=== PATIENT | male | born 1935 | race Caucasian/White ===

== ENCOUNTER 2016-11-24 14:45 | Emergency (ER) | payer MEDICARE ==
[~2016-11-24] VITALS: Ht 180.3 cm; Wt 79.0 kg
[~2016-11-24 14:45] MED LIST: ASPI81 PO; CLOP75 PO; ISOS60 PO; LISI-363 PO; METO25 PO; ZOCO40TA PO
[2016-11-24 14:53] VITALS: BP 176/87; PULSE 78; RESP 18; TEMP 98.3; O2SAT 98
--- NOTE | 2016-11-24 14:59 | PD ---
HPI Chief Complaint: Chest Pain Time Seen by Provider: 14:51 Travel History International Travel<30 days: No Contact w/Intl Traveler<30days: No Traveled to known affect area: No History of Present Illness HPI 81-year-old male with history of p HTN, HLD, aroxysmal atrial flutter, CAD with PCI 4, RCA 2 and mid LAD 2, approximately one year ago here with complaint of chest pain and lightheadedness. Patient states he went to synagogue this morning and felt in his usual health. Once he arrived home he had approximately 30 minutes bowel of substernal chest pressure, slightly burning in sensation with associated lightheadedness, dizziness and presyncope. Symptoms resolved spontaneously after nitroglycerin 1. Patient is symptom- free at this time. He sees Dr. amato for cardiology, he is due to see him in approximately 2 weeks. He has not had any provocative testing since his cardiac one year ago. Patient states he's been compliant with his Plavix. PFSH Past Medical History Hx Anticoagulant Therapy: Yes (PLAVIX) Anxiety: Yes Depression: No Heart Rhythm Problems: No Cancer: No Cardiovascular Problems: Yes High Cholesterol: Yes Chest Pain: Yes Congestive Heart Failure: No Diminished Hearing: Yes Endocrine: No Genitourinary: No Hypertension: Yes Immune Disorder: No Inguinal Hernia: Yes Musculoskeletal: No Neurologic: No Psychiatric: No Reproductive: No Respiratory: No ?: Not Past Surgical History AICD: No Arteriovenous Shunt: No Coronary Stent: Yes (X4) Insulin Pump: No Joint Replacement: No Pacemaker: No Other Surgery: Yes (HERNIA REPAIR X 2) Social History Alcohol Use: No Tobacco Use: No Substance Use: No Allergies-Medications (Allergen,Severity, Reaction): Coded Allergies: Penicillin (Verified Allergy, Unknown, 11/24/16) Reported Meds & Prescriptions Reported Meds & Active Scripts Active Reported Simvastatin 20 Mg Tab 20 Mg PO HS Metoprolol Tartrate 25 Mg Tab 12.5 Mg PO BID Aspirin 325 Mg Tab 325 Mg PO DAILY Plavix (Clopidogrel Bisulfate) 75 Mg Tab 75 Mg PO DAILY Lisinopril 2.5 Mg Tab 2.5 Mg PO BID Isosorbide Mononitrate ER (Isosorbide Mononitrate) 60 Mg Tab 60 Mg PO DAILY Review of Systems Except as stated in HPI: all other systems reviewed are Neg Physical Exam Narrative GENERAL: Well-appearing male in no acute distress SKIN: Focused skin assessment warm/dry. HEAD: Normocephalic. EYES: No scleral icterus. No injection or drainage. ENT: Mucous membranes pink and moist. TMs clear bilaterally. NECK: Supple CARDIOVASCULAR: Regular rate and rhythm. No murmur appreciated. RESPIRATORY: No accessory muscle use. Clear to auscultation. Breath sounds equal bilaterally. GASTROINTESTINAL: Abdomen soft, non-tender, nondistended. MUSCULOSKELETAL: No obvious deformities. Trace BLE edema NEUROLOGICAL: Awake and alert. Motor grossly within normal limits. Normal speech. PSYCHIATRIC: Appropriate mood and affect; insight and judgment normal. Data Data Last Documented VS Vital Signs Date Time Temp Pulse Resp B/P Pulse Ox O2 Delivery O2 Flow Rate FiO2 11/24/16 15:03 70 18 136/75 97 Room Air 11/24/16 14:53 98.3 Orders Electrocardiogram (11/24/16 14:51) Basic Metabolic Panel (Bmp) (11/24/16 14:51) Ckmb (Isoenzyme) Profile (11/24/16 14:51) Complete Blood Count With Diff (11/24/16 14:51) Magnesium (Mg) (11/24/16 14:51) Prothrombin Time / Inr (Pt) (11/24/16 14:51) Act Partial Throm Time (Ptt) (11/24/16 14:51) Troponin I (11/24/16 14:51) Chest, Single Ap (11/24/16 14:51) Ecg Monitoring (11/24/16 14:51) Iv Access Insert/Monitor (11/24/16 14:51) Oximetry (11/24/16 14:51) Oxygen Administration (11/24/16 14:51) Sodium Chloride 0.9% Flush (Ns Flush) (11/24/16 15:00) Labs Laboratory Tests Test 11/24/16 15:00 White Blood Count 5.9 TH/MM3 Red Blood Count 4.37 MIL/MM3 Hemoglobin 13.9 GM/DL Hematocrit 39.9 % Mean Corpuscular Volume 91.4 FL Mean Corpuscular Hemoglobin 31.9 PG Mean Corpuscular Hemoglobin 34.8 % Concent Red Cell Distribution Width 12.7 % Platelet Count 237 TH/MM3 Mean Platelet Volume 7.1 FL Neutrophils (%) (Auto) 61.8 % Lymphocytes (%) (Auto) 23.6 % Monocytes (%) (Auto) 12.1 % Eosinophils (%) (Auto) 1.6 % Basophils (%) (Auto) 0.9 % Neutrophils # (Auto) 3.6 TH/MM3 Lymphocytes # (Auto) 1.4 TH/MM3 Monocytes # (Auto) 0.7 TH/MM3 Eosinophils # (Auto) 0.1 TH/MM3 Basophils # (Auto) 0.1 TH/MM3 CBC Comment DIFF FINAL Differential Comment Prothrombin Time 11.3 SEC Prothromb Time International 1.0 RATIO Ratio Activated Partial 28.6 SEC Thromboplast Time Sodium Level 136 MEQ/L Potassium Level 4.0 MEQ/L Chloride Level 102 MEQ/L Carbon Dioxide Level 27.4 MEQ/L Anion Gap 7 MEQ/L Blood Urea Nitrogen 13 MG/DL Creatinine 0.94 MG/DL Estimat Glomerular Filtration 77 ML/MIN Rate Random Glucose 132 MG/DL Calcium Level 8.5 MG/DL Magnesium Level 2.2 MG/DL Total Creatine Kinase 31 U/L Troponin I LESS THAN 0.02 NG/ML MDM Medical Decision Making Medical Screen Exam Complete: Yes Emergency Medical Condition: Yes Medical Record Reviewed: Yes Differential Diagnosis 81-year-old male with history of CAD with previous PCI 4, HTN, HLD, paroxysmal atrial flutter here with complaint of 30 minutes of substernal chest pain with lightheadedness and presyncope. Differential includes ACS, atypical chest pain , GERD, musculoskeletal, arrhythmia, symptomatic anemia, and less likely PE or dissection. Narrative Course Patient placed on monitor, IV established and blood obtained. A twelve-lead EKG shows sinus rhythm without notable ST or T-wave abnormalities and normal intervals. Patient took his aspirin this morning along with nitroglycerin and is symptom-free at this time. Portable chest x-ray obtained that by my read shows no acute abnormalities. CBC, BMP, magnesium, CK-MB, troponin, coags unremarkable. Patient has remained symptom free throughout his ED stay. Given his lack of provocative testing for the last year since he had cardiac stents placed highly recommended staying for serial cardiac enzymes, EKG, telemetry and provocative testing to patient and his . Patient is fairly insistent about going home stating "Dr. amato is good and will get me in tomorrow". Discussed risks and benefits of going home with patient and his , and patient would like to go home at this time. Diagnosis Primary Impression: Precordial chest pain Additional Impression: Lightheadedness Referrals: Yonny Amato MD 1 day Call tomorrow for follow-up appointment Additional Instructions: Follow-up with Dr. amato tomorrow. Return to the emergency department for the warning signs discussed. Med/Other Pt SpecificInfo: No Change to Meds Disposition: 01 DISCHARGE HOME Condition: Stable Marisa Aguilera MD November 24, 2016 14:59
[2016-11-24] MEDS ORDERED: SODIUM CHLORIDE 0.9% FLUSH 10 ML FLUSH IVF PRN (15:00)
[2016-11-24 15:03] VITALS: BP 136/75; PULSE 70; RESP 18; O2SAT 97
[2016-11-24] MEDS ORDERED: ISOS20TA2 PO (15:05)
[2016-11-24] MEDS ORDERED: ASPI325T PO (15:07)
[2016-11-24] MEDS ORDERED: PLAV75TA29 PO (15:07)
[2016-11-24] MEDS ORDERED: LISI2.5T3 PO (15:07)
[2016-11-24] MEDS ORDERED: ISOS60TA PO (15:07)
[2016-11-24] MEDS ORDERED: SIMV20TA PO (15:07)
[2016-11-24] MEDS ORDERED: METO25TA3 PO (15:07)
[2016-11-24 15:13] LABS: AUTOMATED NEUTROPHIL # 3.6 TH/MM3 (1.8-7.7); BASOPHIL # 0.1 TH/MM3 (0-0.2); BASOPHIL % 0.9 % (0.0-2.0); EOSINOPHIL # 0.1 TH/MM3 (0-0.4); EOSINOPHIL % 1.6 % (0.0-4.0); HEMATOCRIT 39.9 % (39.0-51.0); HEMO FLAGS DIFF FINAL; LYMPH % 23.6 % (9.0-44.0); LYMPHOCYTE # 1.4 TH/MM3 (1.0-4.8); MEAN CELL VOLUME 91.4 FL (80.0-100.0); MEAN CORPUSCULAR HEMOGLOBIN 31.9 PG (27.0-34.0); MEAN CORPUSCULAR HGB CONC 34.8 % (32.0-36.0); MONO % 12.1 % (0.0-8.0); NEUT % 61.8 % (16.0-70.0); PLATELET COUNT 237 TH/MM3 (150-450); RED BLOOD COUNT 4.37 MIL/MM3 (4.50-5.90); RED CELL DISTRIBUTION WIDTH 12.7 % (11.6-17.2); WHITE BLOOD COUNT 5.9 TH/MM3 (4.0-11.0)
[2016-11-24 15:23] LABS: CHLORIDE 102 MEQ/L (98-107); SODIUM (NA) 136 MEQ/L (136-145)
--- NOTE | 2016-11-24 15:25 | RADHPO ---
EXAM DATE/TIME: 11/24/2016 15:13 [facility] COMPARISON: CHEST SINGLE AP, October 26, 2015, 19:20. INDICATIONS : Chest pain, dizzy, today MEDICAL HISTORY : None. SURGICAL HISTORY : Cardiac stent ENCOUNTER: Initial ACUITY: 1 day PAIN SCORE: 2/10 LOCATION: Bilateral chest FINDINGS: A single view of the chest demonstrates the lungs to be symmetrically aerated without evidence of mas s, infiltrate or effusion. The cardiomediastinal contours are unremarkable. Osseous structures are intact. CONCLUSION: No evidence of acute cardiopulmonary disease. Yeyo Buck MD on November 24, 2016 at 15:23 Board Certified Radiologist. This report was verified electronically.
[2016-11-24 15:26] LABS: ANION GAP 7 MEQ/L (5-15); BICARBONATE 27.4 MEQ/L (21.0-32.0); BLOOD UREA NITROGEN 13 MG/DL (7-18); MAGNESIUM 2.2 MG/DL (1.5-2.5)
[2016-11-24 15:29] LABS: GLOMERULAR FILTRATION RATE 77 ML/MIN (>89)
[2016-11-24 15:35] LABS: CREATINE KINASE 31 U/L (39-308)
[2016-11-24 15:36] LABS: APTT (PATIENT) 28.6 SEC (24.3-30.1); PROTHROMBIN TIME - PATIENT 11.3 SEC (9.8-11.6)
[2016-11-24 15:57] VITALS: BP 118/63
--- NOTE | 2016-11-25 15:38 | EKG ---
Date Performed: 11/24/2016 Time Performed: 14:43:12 PTAGE: 81 years EKG: Sinus rhythm . When compared to previous tracing, patient is no longer in atrial Flutter. Normal ECG PREVIOUS TRACING : 12/06/2015 13.18 DOCTOR: Carlos Hernandez Interpretating Date/Time 11/25/2016 15:38:31
== END 2016-11-24 16:00 | disposition home or self-care (01) ==
LOC: PHED 14:45
DX: R07.2 Precordial pain (principal); R42 Dizziness and giddiness; E78.00 Pure hypercholesterolemia, unspecified; I10 Essential (primary) hypertension; Z95.5 Presence of coronary angioplasty implant and graft; I48.92 Unspecified atrial flutter; Z79.01 Long term (current) use of anticoagulants
CPT/HCPCS: 71010; 80048; 82550; 83735; 84484; 85025; 85610; 85730; 93005

== ENCOUNTER 2017-07-04 17:12 | Observation (INO) | payer MEDICARE ==
[~2017-07-04] VITALS: Ht 180.3 cm; Wt 81.9 kg
[~2017-07-04 17:12] MED LIST changes: +ASPI-183 PO; -ASPI81 PO; -CLOP75 PO; -ISOS60 PO; +ISOS60TA PO; -LISI-363 PO; +LISI2.5T3 PO; -METO25 PO; +METO25TA3 PO; +PLAV75TA29 PO; +SIMV20TA PO; -ZOCO40TA PO
[2017-07-04 17:17] VITALS: BP 195/104; PULSE 77; RESP 16; TEMP 97.6; O2SAT 99
[2017-07-04 17:30] VITALS: RESP 16; O2SAT 100
[2017-07-04] MEDS ORDERED: ASPIRIN 81 MG CHEW TAB PO ONE (17:30)
[2017-07-04] MEDS ORDERED: SODIUM CHLORIDE 0.9% FLUSH 10 ML FLUSH IVF PRN (17:30)
[2017-07-04] MEDS ORDERED: NITROGLYCERIN 2% OINT 1 GM PACKET TOP ONE (17:30)
[2017-07-04 17:38] LABS: BASOPHIL # 0.1 TH/MM3 (0-0.2); BASOPHIL % 1.1 % (0.0-2.0); EOSINOPHIL # 0.1 TH/MM3 (0-0.4); EOSINOPHIL % 1.5 % (0.0-4.0); HEMATOCRIT 41.8 % (39.0-51.0); HEMOGLOBIN 13.8 GM/DL (13.0-17.0); LYMPH % 28.4 % (9.0-44.0); LYMPHOCYTE # 1.7 TH/MM3 (1.0-4.8); MEAN CELL VOLUME 94.3 FL (80.0-100.0); MEAN CORPUSCULAR HEMOGLOBIN 31.2 PG (27.0-34.0); MEAN CORPUSCULAR HGB CONC 33.1 % (32.0-36.0); MONO % 16.9 % (0.0-8.0); NEUT % 52.1 % (16.0-70.0); PLATELET COUNT 283 TH/MM3 (150-450); RED BLOOD COUNT 4.44 MIL/MM3 (4.50-5.90); RED CELL DISTRIBUTION WIDTH 12.9 % (11.6-17.2); WHITE BLOOD COUNT 5.9 TH/MM3 (4.0-11.0)
[2017-07-04 17:39] VITALS: BP_SYST 177; BP_SYST 182; BP_DIAS 94; BP_DIAS 97; PULSE 74; RESP 16; O2SAT 100
--- NOTE | 2017-07-04 17:39 | PD ---
HPI Chief Complaint: Hypertension Time Seen by Provider: 17:18 Travel History International Travel<30 days: No Contact w/Intl Traveler<30days: No Traveled to known affect area: No History of Present Illness HPI 81 y/o male presents with chest pressure that is been present over the past couple hours. Currently 2 out of 10. He states he took a full aspirin today. He states that he had a stent placed [address] 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 He states he had a stress test in November that was normal. He states that over the past couple of days his blood pressure has been hard to control. He states he had cold-like symptoms but those have resolved and he was taking Zicam for them and does not know if that is related. He denies any concurrent other complaints at this time. He feels worse when he moves around. He denies other modifying factors. Duration is couple hours. PFSH Past Medical History Hx Anticoagulant Therapy: Yes (PLAVIX) Anxiety: Yes Depression: No Heart Rhythm Problems: No Cancer: No Cardiovascular Problems: Yes (HTN, STENTS) High Cholesterol: Yes Chest Pain: Yes Congestive Heart Failure: No Coronary Artery Disease: Yes Diabetes: No Diminished Hearing: Yes Endocrine: No Gastrointestinal Disorders: No Genitourinary: No Hypertension: Yes Immune Disorder: No Inguinal Hernia: Yes Implanted Vascular Access Dvce: No Musculoskeletal: No Neurologic: No Psychiatric: No Reproductive: No Respiratory: No Tetanus Vaccination: < 5 Years Past Surgical History AICD: No Arteriovenous Shunt: No Coronary Stent: Yes (X4) Insulin Pump: No Joint Replacement: No Pacemaker: No Other Surgery: Yes (HERNIA REPAIR X 2) Social History Alcohol Use: No Tobacco Use: No Substance Use: No Allergies-Medications (Allergen,Severity, Reaction): Coded Allergies: penicillin G (Unverified Allergy, Unknown, 07/04/17) Reported Meds & Prescriptions Reported Meds & Active Scripts Active Reported Simvastatin 20 Mg Tab 20 Mg PO HS Metoprolol Tartrate 25 Mg Tab 12.5 Mg PO BID Aspirin 325 Mg Tab 325 Mg PO DAILY Plavix (Clopidogrel Bisulfate) 75 Mg Tab 75 Mg PO DAILY Lisinopril 2.5 Mg Tab 2.5 Mg PO BID Isosorbide Mononitrate ER (Isosorbide Mononitrate) 60 Mg Tab 60 Mg PO DAILY Review of Systems Except as stated in HPI: all other systems reviewed are Neg Physical Exam Narrative GENERAL: Well-nourished, well-developed patient. SKIN: Warm and dry. HEAD: Normocephalic and atraumatic. EYES: No injection or drainage. ENT: No nasal drainage noted. NECK: Supple, trachea midline. CARDIOVASCULAR: Regular rate and rhythm RESPIRATORY: Breath sounds equal bilaterally. No accessory muscle use. GASTROINTESTINAL: Abdomen soft, non-tender, nondistended. EXTREMITIES: No large edema. NEUROLOGICAL: Awake and alert. moves extremities and sensory grossly within normal limits. Normal speech. Data Data Last Documented VS Vital Signs Date Time Temp Pulse Resp B/P (MAP) Pulse Ox O2 Delivery O2 Flow Rate FiO2 07/04/17 18:18 70 16 183/96 (125) 100 Nasal Cannula 2.00 07/04/17 17:17 97.6 Orders Orders Electrocardiogram (07/04/17 17:24) Ckmb (Isoenzyme) Profile (07/04/17 17:24) Complete Blood Count With Diff (07/04/17 17:24) Comprehensive Metabolic Panel (07/04/17 17:24) Magnesium (Mg) (07/04/17 17:24) Prothrombin Time / Inr (Pt) (07/04/17 17:24) Act Partial Throm Time (Ptt) (07/04/17 17:24) Troponin I (07/04/17 17:24) Lipase (07/04/17 17:24) Chest, Single Ap (07/04/17 17:24) Ecg Monitoring (07/04/17 17:24) Bilateral Bp Monitoring (07/04/17 17:24) Iv Access Insert/Monitor (07/04/17 17:24) Oximetry (07/04/17 17:24) Aspirin Chew (Aspirin Chew) (07/04/17 17:30) Nitroglycerin 2% Oint (Nitroglycerin 2% (07/04/17 17:30) Sodium Chloride 0.9% Flush (Ns Flush) (07/04/17 17:30) Place In Observation (07/04/17 ) Vital Signs (Adult) Q4H (07/04/17 18:15) Activity Oob With Assistance (07/04/17 18:15) Medical Territory Manager / Telemetry .CONTINUOUS (07/04/17 18:15) Diet Heart Healthy (07/04/17 Dinner) Sodium Chlor 0.9% 1000 Ml Inj (Ns 1000 M (07/04/17 18:15) Sodium Chloride 0.9% Flush (Ns Flush) (07/04/17 18:15) Sodium Chloride 0.9% Flush (Ns Flush) (07/04/17 21:00) Acetaminophen (Tylenol) (07/04/17 18:15) Ondansetron Inj (Zofran Inj) (07/04/17 18:15) Basic Metabolic Panel (Bmp) (07/05/17 06:00) Complete Blood Count With Diff (07/05/17 06:00) Troponin I (07/04/17 18:15) Troponin I (07/05/17 00:15) Electrocardiogram (07/04/17 18:15) Electrocardiogram (07/05/17 00:15) Pt Request For Service (07/04/17 18:15) Case Management Consult (07/04/17 18:15) Enoxaparin Inj (Lovenox Inj) (07/04/17 18:15) Scd Bilateral/Knee High ELINA.BID (07/04/17 18:15) Tony Bilateral/Knee High ELINA.QSHIFT (07/04/17 18:15) Naloxone Inj (Narcan Inj) (07/04/17 18:15) Docusate Sodium-Senna (Dee-Colace) (07/04/17 21:00) Magnesium Hydroxide Liq (Milk Of Magnesi (07/04/17 18:15) Sennosides (Senokot) (07/04/17 18:15) Bisacodyl Supp (Dulcolax Supp) (07/04/17 18:15) Lactulose Liq (Lactulose Liq) (07/04/17 18:15) Aspirin (Aspirin) (07/05/17 09:00) Clopidogrel (Plavix) (07/05/17 09:00) Isosorbide Mononitrate (Imdur) (07/05/17 09:00) Metoprolol Tartrate (Lopressor) (07/04/17 21:00) (Nf) Lisinopril (07/04/17 21:00) (Nf) Simvastatin (07/04/17 21:00) Admit Order (Ed Use Only) (07/04/17 18:22) Labs Laboratory Tests Test 07/04/17 17:30 White Blood Count 5.9 TH/MM3 Red Blood Count 4.44 MIL/MM3 Hemoglobin 13.8 GM/DL Hematocrit 41.8 % Mean Corpuscular Volume 94.3 FL Mean Corpuscular Hemoglobin 31.2 PG Mean Corpuscular Hemoglobin Concent 33.1 % Red Cell Distribution Width 12.9 % Platelet Count 283 TH/MM3 Mean Platelet Volume 7.0 FL Neutrophils (%) (Auto) 52.1 % Lymphocytes (%) (Auto) 28.4 % Monocytes (%) (Auto) 16.9 % Eosinophils (%) (Auto) 1.5 % Basophils (%) (Auto) 1.1 % Neutrophils # (Auto) 3.0 TH/MM3 Lymphocytes # (Auto) 1.7 TH/MM3 Monocytes # (Auto) 1.0 TH/MM3 Eosinophils # (Auto) 0.1 TH/MM3 Basophils # (Auto) 0.1 TH/MM3 CBC Comment DIFF FINAL Differential Comment Prothrombin Time 10.4 SEC Prothromb Time International Ratio 1.0 RATIO Activated Partial Thromboplast Time 29.1 SEC Blood Urea Nitrogen 10 MG/DL Creatinine 0.89 MG/DL Random Glucose 99 MG/DL Total Protein 7.8 GM/DL Albumin 3.7 GM/DL Calcium Level 8.6 MG/DL Magnesium Level 2.2 MG/DL Alkaline Phosphatase 58 U/L Aspartate Amino Transf (AST/SGOT) 21 U/L Alanine Aminotransferase (ALT/SGPT) 17 U/L Total Bilirubin 0.6 MG/DL Sodium Level 130 MEQ/L Potassium Level 3.7 MEQ/L Chloride Level 99 MEQ/L Carbon Dioxide Level 24.5 MEQ/L Anion Gap 7 MEQ/L Estimat Glomerular Filtration Rate 82 ML/MIN Total Creatine Kinase 56 U/L Troponin I LESS THAN 0.02 NG/ML Lipase 283 U/L MDM Medical Decision Making Medical Screen Exam Complete: Yes Emergency Medical Condition: Yes Medical Record Reviewed: Yes (pmh confirmed) Interpretation(s) CBC & BMP Diagram 07/04/17 17:30 Total Protein 7.8, Albumin 3.7, Calcium Level 8.6, Magnesium Level 2.2, Alkaline Phosphatase 58, Aspartate Amino Transf (AST/SGOT) 21, Alanine Aminotransferase (ALT/SGPT) 17, Total Bilirubin 0.6 Last 24 hours Impressions Chest X-Ray 07/04/17 1724 Signed Impressions: Service Date/Time: Tuesday, July 04, 2017 17:35 - CONCLUSION: 1. No acute cardiopulmonary disease. Derek Milligan MD Differential Diagnosis hypertensive urgency, mi, gastritis, uri, musculoskeletal Narrative Course will check labs, cxr, ekg and dose with nitro paste and reeval pain resolved, agrees to soup person observation Physician Communication Physician Communication dr valdez agrees to admit Diagnosis Primary Impression: Chest pain Qualified Codes: R07.9 - Chest pain, unspecified Additional Impression: Hypertension Qualified Codes: I10 - Essential (primary) hypertension Admitting Information Admitting Physician Requests: Observation Dona Jackson MD Jul 04, 2017 17:39
[2017-07-04 17:51] LABS: CHLORIDE 99 MEQ/L (98-107); SODIUM (NA) 130 MEQ/L (136-145)
[2017-07-04 17:54] LABS: CALCIUM 8.6 MG/DL (8.5-10.1)
--- NOTE | 2017-07-04 17:54 | RADRPT ---
EXAM DATE/TIME: 07/04/2017 17:35 [facility] COMPARISON: CHEST SINGLE AP, November 24, 2016, 15:13. INDICATIONS : Chest pain. MEDICAL HISTORY : None. SURGICAL HISTORY : Coronary artery stent. ENCOUNTER: Initial ACUITY: 1 day PAIN SCORE: 4/10 LOCATION: Bilateral chest FINDINGS: A single view of the chest demonstrates the lungs to be symmetrically aerated without evidence of mas s, infiltrate or effusion. The cardiomediastinal contours are unremarkable. Osseous structures are intact. CONCLUSION: 1. No acute cardiopulmonary disease. Derek Milligan MD on July 04, 2017 at 17:52 Board Certified Radiologist. This report was verified electronically.
[2017-07-04 17:55] LABS: ALBUMIN 3.7 GM/DL (3.4-5.0); BICARBONATE 24.5 MEQ/L (21.0-32.0); BLOOD UREA NITROGEN 10 MG/DL (7-18); GLUCOSE,RANDOM 99 MG/DL (74-106); LIPASE 283 U/L (73-393); MAGNESIUM 2.2 MG/DL (1.5-2.5)
[2017-07-04 17:57] LABS: PROTHROMBIN TIME - PATIENT 10.4 SEC (9.8-11.6)
[2017-07-04 17:58] LABS: ALT (GPT) 17 U/L (12-78); AST (GOT) 21 U/L (15-37); CREATININE 0.89 MG/DL (0.60-1.30); GLOMERULAR FILTRATION RATE 82 ML/MIN (>89)
[2017-07-04 17:59] LABS: TOTAL BILIRUBIN ADULT 0.6 MG/DL (0.2-1.0); TOTAL PROTEIN 7.8 GM/DL (6.4-8.2)
[2017-07-04 18:00] LABS: ALKALINE PHOSPHATASE 58 U/L (45-117)
[2017-07-04 18:03] LABS: TROPONIN I LESS THAN 0.02 NG/ML (0.02-0.05)
[2017-07-04] MEDS ORDERED: SODIUM CHLORIDE 0.9% FLUSH 10 ML FLUSH IV FLUSH PRN (18:15)
[2017-07-04] MEDS ORDERED: SODIUM CHLOR 0.9% 1000 ML INJ 1,000 ML IV SCH (18:15)
[2017-07-04] MEDS ORDERED: LACTULOSE SYRUP 20 GM/30 ML CUP PO PRN (18:15)
[2017-07-04] MEDS ORDERED: NALOXONE HCL 0.4 MG/ML AMP IV PUSH PRN (18:15)
[2017-07-04 18:18] VITALS: BP 183/96; PULSE 70; RESP 16; O2SAT 100
[2017-07-04] MEDS ORDERED: ONDANSETRON HCL 4 MG/2 ML VIAL IVP PRN (19:00)
--- NOTE | 2017-07-04 19:12 | HHI.HP ---
[facility] Primary Care Physician Marko Silva MD Admission Diagnosis chest pain Diagnoses: Chief Complaint: chest pressure Travel History International Travel<30 Days: No Contact w/Intl Traveler <30 Da: No Traveled to Known Affected Are: No History of Present Illness Very pleasant 81 yo male with PMH of coronary artery disease with 4 st[place] [address] amato cardiology, hypertension, hyperlipidemia. C/o chest pressure that started in the morning he took lisinopril as his BP was elevated, his BP continued to be elevated during the day. He came for further evaluation to the emergency room. He says he had a normal stress test done in November [address] Amato. Says he did some work buying a car yesterday and thinks stress aggravated his condition. Says this time he doesn't have chest pain and it doesn't feel like preciously when he had [place]. Says is more pressure in his chest, nonradiating, his BP continued to be elevated during the day today despite taking all his meds in the morning. Symptoms are moderate to severe getting better . His symptoms are both at rest and also with exertion. Says nitro paste given in the ED improved his BP and also the pressure in his chest . Now he feel comfortable. No associated sob, diaphoresis, n/v/d/c. No palpitations. Niles sick for 2 -3 days and took zycam. No cough, fever or chills. Had stress test November [address] Amato his cardiology. Review of Systems Except as stated in HPI: all other systems reviewed are Neg Past Family Social History Past Medical History Hypertension Hyperlipidemia CAD with [address] October 2015, Dr Amato Past Surgical History CAD with [address] October 2015, Dr Amato hernia repair right inguinal Reported Medications Reported Meds & Active Scripts Active Reported Simvastatin 20 Mg Tab 20 Mg PO HS Metoprolol Tartrate 25 Mg Tab 12.5 Mg PO BID Aspirin 325 Mg Tab 325 Mg PO DAILY Plavix (Clopidogrel Bisulfate) 75 Mg Tab 75 Mg PO DAILY Lisinopril 2.5 Mg Tab 2.5 Mg PO BID Isosorbide Mononitrate ER (Isosorbide Mononitrate) 60 Mg Tab 60 Mg PO DAILY Allergies: Coded Allergies: penicillin G (Unverified Allergy, Unknown, 07/04/17) Family History Dad had heart problems, [place] at 76 Social History No EtOH , tobacco use , illicit drug use Physical Exam Vital Signs Vital Signs Date Time Temp Pulse Resp B/P (MAP) Pulse Ox O2 Delivery O2 Flow Rate FiO2 07/04/17 18:18 70 16 183/96 (125) 100 Nasal Cannula 2.00 07/04/17 17:39 74 16 177/97 (123) 100 Nasal Cannula 2.00 182/94 (123) 07/04/17 17:30 16 100 Nasal Cannula 2.00 07/04/17 17:23 16 99 Nasal Cannula 2.00 07/04/17 17:17 97.6 77 16 195/104 (134) 99 Physical Exam GENERAL: This is a well-nourished, well-developed patient, in no apparent distress. SKIN: No rashes, ecchymoses or lesions. Cool and dry. HEAD: Atraumatic. Normocephalic. No temporal or scalp tenderness. EYES: Pupils equal round and reactive. Extraocular motions intact. No scleral icterus. No injection or drainage. ENT: Nose without bleeding, purulent drainage or septal hematoma. Throat without erythema, tonsillar hypertrophy or exudate. Uvula midline. Airway patent. NECK: Trachea midline. No JVD or lymphadenopathy. Supple, nontender, no meningeal signs. CARDIOVASCULAR: Regular rate and rhythm without murmurs, gallops, or rubs. RESPIRATORY: Clear to auscultation. Breath sounds equal bilaterally. No wheezes , rales, or rhonchi. GASTROINTESTINAL: Abdomen soft, non-tender, nondistended. No hepato-splenomegaly , or palpable masses. No guarding. MUSCULOSKELETAL: Extremities without clubbing, cyanosis, or edema. No joint tenderness, effusion, or edema noted. No calf tenderness. Negative Homans sign bilaterally. NEUROLOGICAL: Awake and alert. Cranial nerves II through XII intact. Motor and sensory grossly within normal limits. Five out of 5 muscle strength in all muscle groups. Normal speech. Laboratory Laboratory Tests Test 07/04/17 17:30 White Blood Count 5.9 Red Blood Count 4.44 Hemoglobin 13.8 Hematocrit 41.8 Mean Corpuscular Volume 94.3 Mean Corpuscular Hemoglobin 31.2 Mean Corpuscular Hemoglobin Concent 33.1 Red Cell Distribution Width 12.9 Platelet Count 283 Mean Platelet Volume 7.0 Neutrophils (%) (Auto) 52.1 Lymphocytes (%) (Auto) 28.4 Monocytes (%) (Auto) 16.9 Eosinophils (%) (Auto) 1.5 Basophils (%) (Auto) 1.1 Neutrophils # (Auto) 3.0 Lymphocytes # (Auto) 1.7 Monocytes # (Auto) 1.0 Eosinophils # (Auto) 0.1 Basophils # (Auto) 0.1 CBC Comment DIFF FINAL Differential Comment Prothrombin Time 10.4 Prothromb Time International Ratio 1.0 Activated Partial Thromboplast Time 29.1 Blood Urea Nitrogen 10 Creatinine 0.89 Random Glucose 99 Total Protein 7.8 Albumin 3.7 Calcium Level 8.6 Magnesium Level 2.2 Alkaline Phosphatase 58 Aspartate Amino Transf (AST/SGOT) 21 Alanine Aminotransferase (ALT/SGPT) 17 Total Bilirubin 0.6 Sodium Level 130 Potassium Level 3.7 Chloride Level 99 Carbon Dioxide Level 24.5 Anion Gap 7 Estimat Glomerular Filtration Rate 82 Total Creatine Kinase 56 Troponin I LESS THAN 0.02 Lipase 283 Result Diagram: 07/04/17 1730 07/04/17 173 Imaging Last Impressions Chest X-Ray 07/04/17 1724 Signed Impressions: Service Date/Time: Tuesday, July 04, 2017 17:35 - CONCLUSION: 1. No acute cardiopulmonary disease. MD Francisca Manuel VTE Risk Assessment Francisca VTE Risk Assessment: Mod/High Risk (score >= 2) Caprini Risk Assessment Model Point Value = 1 Point Value = 2 Point Value = 3 Point Value = 5 Age 41-60 Minor surgery BMI > 25 kg/m2 Swollen legs Varicose veins or History of unexplained or recurrent spontaneous Oral contraceptives or hormone replacement Sepsis (< 1 month) Serious lung disease, including pneumonia (< 1 month) Abnormal pulmonary function Acute myocardial infarction Congestive heart failure (< 1 month) History of inflammatory bowel disease Medical patient at bed rest Age 61-74 Arthroscopic surgery Major open surgery (> 45 min) Laparoscopic surgery (> 45 min) Malignancy Confined to bed (> 72 hours) Immobilizing plaster cast Central venous access Age >= 75 History of VTE Family history of VTE Factor V Leiden Prothrombin [id number] Lupus anticoagulant Anticardiolipin antibodies Elevated serum homocysteine Heparin-induced thrombocytopenia Other congenital or acquired thrombophilia Stroke (< 1 month) Elective arthroplasty Hip, pelvis, or leg fracture Acute spinal cord injury (< 1 month) Prophylaxis Regimen Total Risk Factor Score Risk Level Prophylaxis Regimen 0-1 Low Early ambulation 2 Moderate Order ONE of the following: *Sequential Compression Device (SCD) *Heparin 5000 units SQ BID 3-4 Higher Order ONE of the following medications: *Heparin 5000 units SQ TID *Enoxaparin/Lovenox 40 mg SQ daily (WT < 150 kg, CrCl > 30 mL/min) *Enoxaparin/Lovenox 30 mg SQ daily (WT < 150 kg, CrCl > 10-29 mL/min) *Enoxaparin/Lovenox 30 mg SQ BID (WT < 150 kg, CrCl > 30 mL/min) AND/OR *Sequential Compression Device (SCD) 5 or more Highest Order ONE of the following medications: *Heparin 5000 units SQ TID (Preferred with Epidurals) *Enoxaparin/Lovenox 40 mg SQ daily (WT < 150 kg, CrCl > 30 mL/min) *Enoxaparin/Lovenox 30 mg SQ daily (WT < 150 kg, CrCl > 10-29 mL/min) *Enoxaparin/Lovenox 30 mg SQ BID (WT < 150 kg, CrCl > 30 mL/min) AND *Sequential Compression Device (SCD) Assessment and Plan Assessment and Plan Chest pain with history of coronary artery disease with [address] Amato in 2015 Had a normal stress test in November [address] 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 Ultrasound of lower extremity revealed no DVT Hyponatremia sodium 130 on admission Troponin Negative x1. Trend EKG reviewed and discussed with ED physician, at baseline. 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 Increase lisinopril to 5 mg po bid . DVT Prophylaxis SCD/teds/Lovenox Discussed Condition With Patient, nurse, family at bedside, ED physician Richelle Sanches MD Jul 04, 2017 19:12
[2017-07-04 19:42] VITALS: BP 180/93; TEMP 98.5
[2017-07-04] MEDS ORDERED: ACETAMINOPHEN 325 MG TAB PO PRN (20:00)
[2017-07-04] MEDS ORDERED: ENALAPRILAT 2.5 MG/2 ML VIAL IV PUSH PRN (20:00)
--- NOTE | 2017-07-04 20:12 | RADRPT ---
EXAM DATE/TIME: 07/04/2017 19:32 [place] COMPARISON: No previous studies available for comparison. INDICATIONS : Bilateral leg swelling. MEDICAL HISTORY : Hypertension. Hypercholesterolemia. Hearing loss. Glasses. Anticoagulant therapy, plavix. Chest pain . Inguinal hernia. Anxiety. SURGICAL HISTORY : Stents. Hernia reapir. ENCOUNTER: Initial ACUITY: 1 week PAIN SCORE: 2/10 LOCATION: Bilateral legs. TECHNIQUE: Venous ultrasound of the left and right leg was performed from the inguinal ligament to the proximal calf. Real-time, color Doppler and spectral tracing, compression and augmentation techniques were us ed. FINDINGS: RIGHT LEG: There is normal compressibility of the deep venous system from the inguinal region to the proximal ca lf. No echogenic clot is seen in the lumen of the common femoral, femoral, popliteal, and posterior tibial veins. There is a normal response of the venous system to proximal and distal augmentation an d respiration. LEFT LEG: There is normal compressibility of the deep venous system from the inguinal region to the proximal ca lf. No echogenic clot is seen in the lumen of the common femoral, femoral, popliteal, and posterior tibial veins. There is a normal response of the venous system to proximal and distal augmentation an d respiration. CONCLUSION: Negative exam with no evidence of deep venous thrombosis. Elbert Matthew MD on July 04, 2017 at 20:10 Board Certified Radiologist. This report was verified electronically.
[2017-07-04] MEDS ORDERED: SENNOSIDES 8.6 MG TAB PO PRN (21:00)
[2017-07-04] MEDS ORDERED: ENOXAPARIN SODIUM 40 MG/0.4 ML SYRINGE SQ SCH (21:00)
[2017-07-04] MEDS ORDERED: LISINOPRIL 5 MG TAB PO SCH (21:00)
[2017-07-04] MEDS ORDERED: PILL SPLITTER OTHER PRN (21:00)
[2017-07-04] MEDS ORDERED: PRAVASTATIN SOD 40 MG TAB PO SCH (21:00)
[2017-07-04] MEDS ORDERED: MAGNESIUM HYDROXIDE SUSP 30 ML CUP PO PRN (21:00)
[2017-07-04] MEDS ORDERED: BISACODYL 10 MG SUPP RECTAL PRN (21:00)
[2017-07-04 21:42] VITALS: BP 142/67; PULSE 68; RESP 18; TEMP 96.3; O2SAT 97
[2017-07-04] MEDS: SODIUM CHLORIDE 0.9% FLUSH 10 ML FLUSH IV FLUSH SCH (21:59)
[2017-07-04] MEDS: DOCUSATE SODIUM 50 MG/SENNA 8.6 MG TAB PO SCH (21:59)
[2017-07-04] MEDS: METOPROLOL TARTRATE 25 MG TAB PO SCH (22:00)
[2017-07-04] MEDS: NITROGLYCERIN 2% OINT 1 GM PACKET TOPICAL SCH (23:58)
[2017-07-05 00:21] VITALS: BP 124/63; PULSE 69; RESP 16; TEMP 96.9; O2SAT 98
[2017-07-05 05:10] VITALS: BP 127/73; PULSE 71; RESP 18; TEMP 97.2; O2SAT 99
[2017-07-05] MEDS: NITROGLYCERIN 2% OINT 1 GM PACKET TOPICAL SCH (05:51)
[2017-07-05 08:00] VITALS: BP 133/66; PULSE 66; RESP 18; TEMP 97.3; O2SAT 97
[2017-07-05] MEDS: METOPROLOL TARTRATE 25 MG TAB PO SCH (08:43)
[2017-07-05] MEDS: DOCUSATE SODIUM 50 MG/SENNA 8.6 MG TAB PO SCH (08:44)
[2017-07-05] MEDS: SODIUM CHLORIDE 0.9% FLUSH 10 ML FLUSH IV FLUSH SCH (08:45)
[2017-07-05 08:48] LABS: AUTOMATED NEUTROPHIL # 2.7 TH/MM3 (1.8-7.7); BASOPHIL % 0.8 % (0.0-2.0); EOSINOPHIL # 0.1 TH/MM3 (0-0.4); EOSINOPHIL % 2.1 % (0.0-4.0); HEMATOCRIT 42.2 % (39.0-51.0); HEMOGLOBIN 13.9 GM/DL (13.0-17.0); LYMPH % 25.3 % (9.0-44.0); LYMPHOCYTE # 1.2 TH/MM3 (1.0-4.8); MEAN CELL VOLUME 95.2 FL (80.0-100.0); MEAN CORPUSCULAR HEMOGLOBIN 31.3 PG (27.0-34.0); MEAN CORPUSCULAR HGB CONC 32.9 % (32.0-36.0); MEAN PLATELET VOLUME 7.4 FL (7.0-11.0); MONO % 17.6 % (0.0-8.0); MONOCYTE # 0.9 TH/MM3 (0-0.9); NEUT % 54.2 % (16.0-70.0); PLATELET COUNT 266 TH/MM3 (150-450); RED BLOOD COUNT 4.43 MIL/MM3 (4.50-5.90); RED CELL DISTRIBUTION WIDTH 12.9 % (11.6-17.2); WHITE BLOOD COUNT 4.9 TH/MM3 (4.0-11.0)
[2017-07-05 08:56] LABS: CALCIUM 8.7 MG/DL (8.5-10.1)
[2017-07-05 08:57] LABS: BICARBONATE 25.6 MEQ/L (21.0-32.0)
--- NOTE | 2017-07-05 08:59 | HHI.PR ---
Subjective Remarks No chest pain overnight. No diaphoresis, shortness of breath, nausea, vomiting , diarrhea or constipation. No headaches. No motor deficit. Feels much better and he wants to go home. We'll follow-up with his cardiology Dr. as outpatient Objective Vitals Vital Signs Date Time Temp Pulse Resp B/P (MAP) Pulse Ox O2 Delivery O2 Flow Rate FiO2 07/05/17 05:10 97.2 71 18 127/73 (91) 99 07/05/17 00:21 96.9 69 16 124/63 (83) 98 07/04/17 21:42 96.3 68 18 142/67 (92) 97 07/04/17 19:42 98.5 88 16 180/93 (122) 07/04/17 18:18 70 16 183/96 (125) 100 Nasal Cannula 2.00 07/04/17 17:39 74 16 177/97 (123) 100 Nasal Cannula 2.00 182/94 (123) 07/04/17 17:30 16 100 Nasal Cannula 2.00 07/04/17 17:23 16 99 Nasal Cannula 2.00 07/04/17 17:17 97.6 77 16 195/104 (134) 99 I/O 07/04/17 07/04/17 07/04/17 07/05/17 07/05/17 07/05/17 07:00 15:00 23:00 07:00 15:00 23:00 Output Total 600 ml Balance -600 ml Output Urine Total 600 ml # Voids 2 # Bowel Movements 0 Result Diagram: 07/05/17 0813 07/05/17 0813 Imaging Last Impressions Chest X-Ray 07/04/17 1724 Signed Impressions: Service Date/Time: Tuesday, July 04, 2017 17:35 - CONCLUSION: 1. No acute cardiopulmonary disease. Derek Milligan MD Lower Extremity Ultrasound 07/04/17 0000 Signed Impressions: Service Date/Time: Tuesday, July 04, 2017 19:32 - CONCLUSION: Negative exam with no evidence of deep venous thrombosis. Elbert Matthew MD Objective Remarks GENERAL: This is a well-nourished, well-developed patient, in no apparent distress. CARDIOVASCULAR: Regular rate and rhythm without murmurs, gallops, or rubs. RESPIRATORY: Clear to auscultation. Breath sounds equal bilaterally. No wheezes , rales, or rhonchi. GASTROINTESTINAL: Abdomen soft, non-tender, nondistended. No hepato-splenomegaly , or palpable masses. No guarding. MUSCULOSKELETAL: Extremities without clubbing, cyanosis, or edema. No joint tenderness, effusion, or edema noted. No calf tenderness. Negative Homans sign bilaterally. NEUROLOGICAL: Awake and alert. Cranial nerves II through XII intact. Motor and sensory grossly within normal limits. Five out of 5 muscle strength in all muscle groups. Normal speech. A/P Assessment and Plan Chest pain with history of coronary artery disease with [address] Stephenson in 2015 Had a normal stress test in November [address] 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 Ultrasound of lower extremity revealed no DVT Hyponatremia sodium 130 on admission Troponin Negative x3. EKG reviewed and discussed with ED physician, at baseline. Repeat EKG t baseline Monitor On Telemetry Continue Nitropaste Restart home medications as appropriate. Increase lisinopril to 5 mg po bid . DVT Prophylaxis SCD/teds/Lovenox Discussed Condition With Patient, nurse, family at bedside Discharge Planning Discharged home in stable condition to follow-up with PCP and consultants as outpatient Diet heart healthy diet Medications per medication reconciliation Activity ad alisha. as tolerated Richelle Sanches MD Jul 05, 2017 08:59
[2017-07-05 09:00] LABS: CREATININE 0.82 MG/DL (0.60-1.30)
[2017-07-05] MEDS ORDERED: ASPIRIN 325 MG TAB PO SCH (09:00)
[2017-07-05] MEDS ORDERED: CLOPIDOGREL 75 MG TAB PO SCH (09:00)
[2017-07-05] MEDS ORDERED: ISOSORBIDE MONONITRATE 60 MG TAB PO SCH (09:00)
[2017-07-05] MEDS ORDERED: LISINOPRIL 5 MG TAB PO SCH (09:00)
--- NOTE | 2017-07-05 11:58 | HHI.DCPOC ---
Discharge Care Plan Diagnosis: (1) Chest pain Your Health Problems Are: Chest Pain Goals to Promote Your Health * To prevent worsening of your condition and complications * To maintain your health at the optimal level Directions to Meet Your Goals Take your medications as prescribed Follow your dietary instruction Follow activity as directed Keep your appointments as scheduled Take your immunizations and boosters as scheduled If your symptoms worsen call your PCP, if no PCP go to Urgent Care Center or Emergency Room Smoking is Dangerous to Your Health. Avoid second hand smoke Call the 24-hour hour crisis hotline for domestic abuse at Dalia Rodríguez Jul 05, 2017 11:58
[2017-07-05] MEDS ORDERED: ISOS60TA PO (12:01)
[2017-07-05] MEDS ORDERED: LISI-519 PO (12:01)
--- NOTE | 2017-07-06 12:42 | EKG ---
Date Performed: 07/04/2017 Time Performed: 20:49:00 PTAGE: 81 years EKG: Sinus rhythm POSSIBLE LEFT ATRIAL ENLARGEMENT Compared to prior tracing no significant change BORDERLINE ECG PREVIOUS TRACING : 07/04/2017 17.17 DOCTOR: Carlos Hernandez Interpretating Date/Time 07/06/2017 12:42:02
--- NOTE | 2017-07-06 14:17 | EKG ---
Date Performed: 07/05/2017 Time Performed: 00:23:28 PTAGE: 81 years EKG: SINUS BRADYCARDIA WITH FIRST DEGREE AV BLOCK Compared to previous tracing MN interval has s lightly increased ABNORMAL ECG PREVIOUS TRACING : 07/04/2017 20.49 DOCTOR: Carlos Hernandez Interpretating Date/Time 07/06/2017 14:17:32
--- NOTE | 2017-07-06 14:17 | EKG ---
Date Performed: 07/04/2017 Time Performed: 17:17:22 PTAGE: 81 years EKG: Sinus rhythm POSSIBLE LEFT ATRIAL ENLARGEMENT VERY SLIGHT NONSPECIFIC ST CHANGE Compared to prior tracing no sign ificant change ABNORMAL ECG PREVIOUS TRACING : 11/24/2016 14.43 DOCTOR: Carlos Hernandez Interpretating Date/Time 07/06/2017 14:16:52
== END 2017-07-05 13:12 | disposition home or self-care (01) ==
LOC: PHED 17:12 → PHEDA 18:23 → PH3A 20:15
PROVIDERS: ADMIT Hospitalist; ATTEND Hospitalist
DX: I10 Essential (primary) hypertension (principal); I25.10 Atherosclerotic heart disease of native coronary artery without angina pectoris; Z95.5 Presence of coronary angioplasty implant and graft; E78.5 Hyperlipidemia, unspecified; Z79.01 Long term (current) use of anticoagulants; Z79.899 Other long term (current) drug therapy; F41.9 Anxiety disorder, unspecified; R94.31 Abnormal electrocardiogram [ECG] [EKG]; I44.0 Atrioventricular block, first degree
CPT/HCPCS: 71010; 80048; 80053; 82550; 83690; 83735; 84484; 85025; 85610; 85730; 93005; 93970; 96360; 96372; 97162; 99285; G0378; G8987; G8988; J1650; J7030